=== PATIENT | female | born 1960 | race Two or more races ===

== ENCOUNTER → 2017-05-27 | Outpatient (CLI) | payer OTHER ==
[2014-06-01 18:30] VITALS: BP 136/65
== END | disposition home or self-care (01) ==
LOC: SURG 14:32
PROVIDERS: ATTEND Anesthesiology Pain Medicine
DX: M54.16 Radiculopathy, lumbar region (principal); M47.816 Spondylosis without myelopathy or radiculopathy, lumbar region; M51.37 Other intervertebral disc degeneration, lumbosacral region; F41.9 Anxiety disorder, unspecified; E11.9 Type 2 diabetes mellitus without complications; G89.4 Chronic pain syndrome
CPT/HCPCS: 99214

== ENCOUNTER → 2017-07-14 | Outpatient (CLI) | payer OTHER ==
[~2017-07-14] MED LIST: AMIT25TA PO; BUPIVACAINE MPF 0.25% 10 ML VIAL. ONE; CRESTOR40 MG PO; DEXAMETHASONE SOD PHOS 4 MG/ML VIAL ONE; DIAZ5TAB4 PO; ESOM40CA PO; GLIM4TAB2 PO; HYDR-2766 PO; HYDR2TAB31 PO; INSU100C SQ; IOHEXOL 300 MG/ML 50 ML VIAL. ONE; LEVO25TA4 PO; LIDOCAINE 1% PF 30 ML VIAL. ONE; LIRA0.6P2 SQ; MIDAZOLAM HCL PF 2 MG/2 ML VIAL. ONE; OMEG1CAP6 PO; PREG150C PO; SITA1TAB11 PO; TIZA4TAB PO
[2017-07-14] MEDS: IV RINGERS SOLUTION,LACTATED 1,000 ML IV SCH (11:57)
[2017-07-14 13:11] VITALS: BP 87/48
== END | disposition home or self-care (01) ==
LOC: SURG 10:24
PROVIDERS: ATTEND Anesthesiology Pain Medicine
DX: M54.16 Radiculopathy, lumbar region (principal); K21.9 Gastro-esophageal reflux disease without esophagitis; E11.9 Type 2 diabetes mellitus without complications; Z87.39 Personal history of other diseases of the musculoskeletal system and connective tissue; Z90.710 Acquired absence of both cervix and uterus; Z98.890 Other specified postprocedural states; Z88.6 Allergy status to analgesic agent
CPT/HCPCS: 64483; 64484; 82947; J1100; J2001; J2250; J3010; J3490; J7120; Q9967; 99152

== ENCOUNTER → 2017-08-18 | Outpatient (CLI) | payer OTHER ==
[2017-07-14 13:11] VITALS: BP 87/48
[~2017-08-18] MED LIST changes: -MIDAZOLAM HCL PF 2 MG/2 ML VIAL. ONE
== END ==
LOC: SURG 14:09
PROVIDERS: ATTEND Anesthesiology Pain Medicine
DX: M54.5 Low back pain (principal); K21.9 Gastro-esophageal reflux disease without esophagitis; E11.9 Type 2 diabetes mellitus without complications; Z88.6 Allergy status to analgesic agent; Z90.710 Acquired absence of both cervix and uterus; Z98.890 Other specified postprocedural states; Z87.891 Personal history of nicotine dependence; Z72.89 Other problems related to lifestyle
CPT/HCPCS: 64483; 64484; J1100; J2001; J3490; Q9967

== ENCOUNTER → 2017-09-02 | Outpatient (CLI) | payer OTHER ==
[2017-07-14 13:11] VITALS: BP 87/48
[~2017-09-02] MED LIST changes: -BUPIVACAINE MPF 0.25% 10 ML VIAL. ONE; -DEXAMETHASONE SOD PHOS 4 MG/ML VIAL ONE; -IOHEXOL 300 MG/ML 50 ML VIAL. ONE; -LIDOCAINE 1% PF 30 ML VIAL. ONE
== END | disposition home or self-care (01) ==
LOC: SURG 12:42
PROVIDERS: ATTEND Anesthesiology Pain Medicine
DX: M47.816 Spondylosis without myelopathy or radiculopathy, lumbar region (principal); K21.9 Gastro-esophageal reflux disease without esophagitis; Z88.6 Allergy status to analgesic agent; Z98.890 Other specified postprocedural states; Z87.39 Personal history of other diseases of the musculoskeletal system and connective tissue; Z87.891 Personal history of nicotine dependence
CPT/HCPCS: 99214

== ENCOUNTER → 2017-11-11 | Outpatient (CLI) | payer OTHER ==
[2017-07-14 13:11] VITALS: BP 87/48
== END | disposition home or self-care (01) ==
LOC: SURG 10:48
PROVIDERS: ATTEND Anesthesiology Pain Medicine
DX: M54.5 Low back pain (principal); M79.605 Pain in left leg; E78.5 Hyperlipidemia, unspecified; K21.9 Gastro-esophageal reflux disease without esophagitis; E11.9 Type 2 diabetes mellitus without complications; G89.29 Other chronic pain; Z79.4 Long term (current) use of insulin; Z87.891 Personal history of nicotine dependence; Z87.39 Personal history of other diseases of the musculoskeletal system and connective tissue; Z88.6 Allergy status to analgesic agent
CPT/HCPCS: 99214

== ENCOUNTER → 2018-01-12 | Outpatient (CLI) | payer OTHER ==
[2017-07-14 13:11] VITALS: BP 87/48
== END | disposition home or self-care (01) ==
LOC: SURG 09:15
PROVIDERS: ATTEND Anesthesiology Pain Medicine
DX: M54.16 Radiculopathy, lumbar region (principal); M47.816 Spondylosis without myelopathy or radiculopathy, lumbar region; G89.4 Chronic pain syndrome; F11.90 Opioid use, unspecified, uncomplicated; K21.9 Gastro-esophageal reflux disease without esophagitis; E78.5 Hyperlipidemia, unspecified; E11.9 Type 2 diabetes mellitus without complications; E03.9 Hypothyroidism, unspecified; Z79.899 Other long term (current) drug therapy
CPT/HCPCS: 99214

== ENCOUNTER → 2018-06-09 | Outpatient (CLI) | payer OTHER ==
[2017-07-14 13:11] VITALS: BP 87/48
[~2018-06-09] MED LIST changes: -HYDR-2766 PO; +HYDR-2769 PO
== END | disposition home or self-care (01) ==
LOC: SURG 11:14
PROVIDERS: ATTEND Anesthesiology Pain Medicine
DX: M47.26 Other spondylosis with radiculopathy, lumbar region (principal); M19.90 Unspecified osteoarthritis, unspecified site; G89.4 Chronic pain syndrome; F11.90 Opioid use, unspecified, uncomplicated; E78.5 Hyperlipidemia, unspecified; K21.9 Gastro-esophageal reflux disease without esophagitis; E11.9 Type 2 diabetes mellitus without complications; E03.9 Hypothyroidism, unspecified; Z79.899 Other long term (current) drug therapy; Z87.891 Personal history of nicotine dependence
CPT/HCPCS: 99214

== ENCOUNTER → 2018-09-08 | Outpatient (CLI) | payer OTHER ==
[2017-07-14 13:11] VITALS: BP 87/48
== END | disposition home or self-care (01) ==
LOC: SURG 12:11
PROVIDERS: ATTEND Anesthesiology Pain Medicine
DX: M54.5 Low back pain (principal); M19.90 Unspecified osteoarthritis, unspecified site; M96.1 Postlaminectomy syndrome, not elsewhere classified; E78.5 Hyperlipidemia, unspecified; K21.9 Gastro-esophageal reflux disease without esophagitis; E03.9 Hypothyroidism, unspecified; E11.42 Type 2 diabetes mellitus with diabetic polyneuropathy; G89.4 Chronic pain syndrome; Z79.891 Long term (current) use of opiate analgesic; Z79.899 Other long term (current) drug therapy; Z87.891 Personal history of nicotine dependence
CPT/HCPCS: 99214

== ENCOUNTER → 2019-01-26 | Outpatient (CLI) | payer OTHER ==
[~2019-01-26] MED LIST changes: -GLIM4TAB2 PO; +GLIM4TAB4 PO; +INSU100V31 SQ; -TIZA4TAB PO; +TIZA4TAB2 PO
[2019-01-26 13:41] VITALS: BP 139/71
== END | disposition home or self-care (01) ==
LOC: SURG 13:10
PROVIDERS: ATTEND Anesthesiology Pain Medicine
DX: M54.16 Radiculopathy, lumbar region (principal); G89.4 Chronic pain syndrome; K21.9 Gastro-esophageal reflux disease without esophagitis; E11.9 Type 2 diabetes mellitus without complications; E03.9 Hypothyroidism, unspecified; Z87.891 Personal history of nicotine dependence; Z79.899 Other long term (current) drug therapy
CPT/HCPCS: 99214

== ENCOUNTER → 2019-03-22 | Outpatient (CLI) | payer MEDICARE, OTHER ==
[~2019-03-22] MED LIST changes: -GLIM4TAB4 PO; +GLIM4TAB8 PO
[2019-03-22 09:41] VITALS: BP 121/60
== END | disposition home or self-care (01) ==
LOC: SURG 09:20
PROVIDERS: ATTEND Anesthesiology Pain Medicine
DX: M54.16 Radiculopathy, lumbar region (principal); M54.5 Low back pain; G89.4 Chronic pain syndrome; Z79.891 Long term (current) use of opiate analgesic; Z79.899 Other long term (current) drug therapy
CPT/HCPCS: 99214

== ENCOUNTER → 2019-04-19 | Outpatient (CLI) | payer MEDICARE, OTHER ==
[2019-04-19 14:38] VITALS: BP 102/70
== END | disposition home or self-care (01) ==
LOC: SURG 14:31
PROVIDERS: ATTEND Anesthesiology Pain Medicine
DX: M54.16 Radiculopathy, lumbar region (principal); G89.4 Chronic pain syndrome; E78.5 Hyperlipidemia, unspecified; K21.9 Gastro-esophageal reflux disease without esophagitis; E03.9 Hypothyroidism, unspecified; Z79.891 Long term (current) use of opiate analgesic; Z79.899 Other long term (current) drug therapy
CPT/HCPCS: 99214; G0463

== ENCOUNTER 2020-02-27 18:45 | Emergency (ER) | payer MEDICARE, OTHER ==
[~2020-02-27] VITALS: Ht 162.6 cm; Wt 71.0 kg
[2020-02-27 18:45] VITALS: BP 100/62
--- NOTE | 2020-02-27 19:03 | PHYS DOC ---
Past History Past Medical History: Anxiety, Arthritis, Diabetes, High Cholesterol, Hypertension, Hypothyroid Past Surgical History: Hysterectomy, Oophorectomy Smoking: Cigarettes Alcohol Use: None Drug Use: None General Adult EDM: Chief Complaint: BACK PAIN OR INJURY HPI: HPI: "... I am a mess.. I just got surgery on this Rt. foot.. Dr. Mills... At [facility]... They straightened toe put a wire in it and do some other surgery on my foot this was on February 11... But now getting back pain I do not know if it is from walking around with this walking cast or my chronic back pain from the multiple back surgeries have had... They did give her some pain meds but they are not helping very well ... I do have diabetes and decreased sensation in my feet particularly here on the right but that is kind of chr onic..." I am worried maybe I have a kidney stone or may be a UTI or things checked out Patient is a 59 year old female who presents with above hx and complaints lumbar sacral muscle spasm on right. Patient has history of diabetes, hypertension, chronic back pain from prior back injuries and surgery fixations, recent right foot surgery, and history of diabetes. Patient does have history of some peripheral neuropathy which has been chronic. Patient localizes pain in the lumbar sacral area has obvious spasm in this area. No midline tenderness. No recent fever or chills. No respiratory history immunosuppression. No recent travel or specific ill contacts. No history of Covid risk factors. Patient normally follows with for care. Patient does continue to smoke. Patient states her glucose levels today have been well controlled. No history of IV drug use that is listed. Patient denies any fever chills. Patient denies any problems with defecation or urination. No saddle sensation loss. Review of Systems: Review of Systems: Constitutional: Denies fever or chills Eyes: Denies change in visual acuity HENT: Denies nasal congestion or sore throat Respiratory: Denies cough or shortness of breath Cardiovascular: Denies chest pain or edema GI: Denies abdominal pain, nausea, vomiting, bloody stools or diarrhea : Denies dysuria Musculoskeletal: Complains of lower back pain on the right, no true CVA tenderness Integument: Denies rash Neurologic: Denies headache, focal weakness or sensory changes Endocrine: Denies polyuria or polydipsia Lymphatic: Denies swollen glands Psychiatric: Denies depression or anxiety Family History: Family History: Noncontributory to presentation Current Medications: Current Meds: See nursing for home meds Allergies: Allergies: Allergies Coded Allergies Type Severity Reaction Last Updated Verified morphine Allergy Unknown 03/22/19 Yes Physical Exam: PE: Constitutional: Moderate acute distress, non-toxic appearance. [] HENT: Normocephalic, atraumatic, bilateral external ears normal, oropharynx moist, no oral exudates, nose normal. [] Eyes: PERRLA, EOMI, conjunctiva normal, no discharge. [] Neck: Normal range of motion, no tenderness, supple, no stridor. [] Cardiovascular:Heart rate regular rhythm, no murmur [] Lungs & Thorax: Bilateral breath sounds equal apex with scattered wheezes auscultation [] Abdomen: Bowel sounds normal, soft, no tenderness, no masses, no pulsatile masses. [] Skin: Warm, dry, no erythema, no rash. [] Back: Right lower lumbar muscle spasm and tenderness, no CVA tenderness. [] Old surgery scars. No midline tenderness. Extremities: No tenderness, no cyanosis, no clubbing, ROM intact, no edema. [] Right foot in a walking cast Neurologic: Alert and oriented X 3, moves all extremities on request, history of decreased plantar sensation chronic, no focal deficits noted. [] Psychologic: Affect anxious, judgement normal, mood normal. [] EKG: EKG: [] Radiology/Procedures: Radiology/Procedures: [] Heart Score: Risk Factors: Risk Factors: DM, Current or recent (<one month) smoker, HTN, HLP, family histo ry of CAD, obesity. Risk Scores: Score 0 - 3: 2.5% MACE over next 6 weeks - Discharge Home Score 4 - 6: 20.3% MACE over next 6 weeks - Admit for Clinical Observation Score 7 - 10: 72.7% MACE over next 6 weeks - Early Invasive Strategies Course & Med Decision Making: Course & Med Decision Making Pertinent Labs and Imaging studies reviewed. (See chart for details) No marked hematuria or signs of UTI. Discussed patient options of further evaluation. Patient states she will continue her pain meds at home and follow- up with Dr. Llamas. Declines further work-up or x-rays at this time. For marked pain patient may take Vicoprofen up to 4 times a day. May also take a Flexeril 5 mg up to 3 times a day for muscle spasms. Keep follow-up with Dr. Chapa keep follow-up with Dr. Gene moran if any concerns. Advised patient appears to be a multifactorial cause of her right lower back pain spasms. Suspect chronic back pain with recent change in gait is exacerbated her lower back pain on the right. Does not appear to have a kidney stone or UTI. Impression: 1. Exacerbation of chronic lower back pain 2. Muscle spasm 3. Diabetes 4. Recent corrective foot surgery on right and walking cast-February 12, 2020 5. History of peripheral neuropathy. [] Dragon Disclaimer: Dragon Disclaimer: This electronic medical record was generated, in whole or in part, using a voice recognition dictation system. Departure Departure: Referrals: KALEIGH LLAMAS MD (PCP) Scripts Hydrocodone/Ibuprofen (HYDROCODONE-IBUPROFEN 7.5-200 ) 1 Each Tablet 1 TAB PO PRN Q6HRS PRN for PAIN, #30 TAB 0 Refills Prov: ALEKSEY MENENDEZ MD 02/27/20 Discharge Summary Visit Information Final Diagnosis Problems Medical Problems: (1) Back pain Status: Acute Brief Hospital Course Allergies Allergies Coded Allergies Type Severity Reaction Last Updated Verified morphine Allergy Unknown 03/22/19 Yes Vital Signs Vital Signs Date Time Temp Pulse Resp B/P (MAP) Pulse Ox O2 Delivery O2 Flow Rate FiO2 02/27/20 18:45 97.7 78 18 100/62 (75) 97 Room Air Lab Results Laboratory Tests Test 02/27/20 18:50 Urine Collection Type Unknown Urine Color Yellow Urine Clarity Clear Urine pH 5.0 Urine Specific [place] 1.020 Urine Protein Neg (NEG-TRACE) Urine Glucose (UA) >=1000 mg/dL (NEG) Urine Ketones (Stick) Neg mg/dL (NEG) Urine Blood Neg (NEG) Urine Nitrite Neg (NEG) Urine Bilirubin Neg (NEG) Urine Urobilinogen Dipstick 0.2 mg/dL (0.2 mg/dL) Urine Leukocyte Esterase Neg (NEG) Urine RBC Rare /HPF (0-2) Urine WBC 1-4 /HPF (0-4) Urine Squamous Epithelial Cells Few /LPF Urine Bacteria 0 /HPF (0-FEW) Urine Yeast Present /HPF Brief Hospital Course Ms. Shah is a 59 old [sex] who presented with [ ] Discharge Information Dischare Medications Current Medications Ketorolac Tromethamine (Toradol Im) 60 mg 1X ONCE IM Last administered on 02/27/20at 19:57; Start 02/27/20 at 19:45; Stop 02/27/20 at 19:54; Status DC Active Scripts Active Hydrocodone-Ibuprofen 7.5-200 (Hydrocodone/Ibuprofen) 1 Each Tablet 1 Tab PO PRN Q6HRS PRN Reported Novolog (Insulin Aspart) 100 Unit/1 Ml Vial 1 Unit SQ TID Glimepiride 4 Mg Tablet 1 Tab PO BID Dilaudid (Hydromorphone Hcl) 2 Mg Tablet 1 Tab PO QID Tizanidine Hcl (Tizanidine HCl) 4 Mg Tablet 0.5-1 Tab PO PRN Q8HRS PRN Humalog (Insulin Lispro) 100 Unit/1 Ml Cartridge 18 Unit SQ TIDAC Janumet 50-1,000 Mg Tablet (Sitagliptin Phos/Metformin Hcl) 1 Each Tablet 1 Tab PO BID Crestor (Rosuvastatin Calcium) 40 Mg Tablet 40 Mg PO HS Lyrica (Pregabalin) 150 Mg Capsule 1 Cap PO Q6-8HRS PRN Nexium Capsule (Esomeprazole Magnesium) 40 Mg Capsule. 1 Cap PO DAILY Levothyroxine Sodium 25 Mcg Tablet Unknown Dose PO DAILY Kenzie Disclaimer This chart was dictated in whole or in part using Voice Recognition software in a busy, high-work load, and often noisy Emergency Department environment. It may contain unintended and wholly unrecognized errors or omissions. Kenzie Disclaimer This chart was dictated in whole or in part using Voice Recognition software in a busy, high-work load, and often noisy Emergency Department environment. It may contain unintended and wholly unrecognized errors or omissions. ALEKSEY MENENDEZ MD Feb 27, 2020 19:03
[2020-02-27] MEDS ORDERED: KETOROLAC 60 MG/2 ML VIAL. IM ONE (19:45)
[2020-02-27 20:36] LABS: BILIRUBIN,URINE NEG (NEG); CLARITY,URINE CLEAR; COLOR,URINE YELLOW; GLUCOSE,URINE >=1000 mg/dL (NEG)
[2020-02-27 20:37] LABS: BACTERIA,URINE 0 /HPF (0-FEW); NITRITE,URINE NEG (NEG); RBC,URINE RARE /HPF (0-2); SQUAMOUS EPITHELIAL CELL,UR FEW /LPF; UROBILINOGEN,URINE 0.2 mg/dL (0.2 mg/dL); YEAST,URINE PRESENT /HPF
[2020-02-27] MEDS ORDERED: HYDR-1179 PO (20:46)
== END 2020-02-27 21:00 | disposition home or self-care (01) ==
LOC: ER 18:45
DX: G89.29 Other chronic pain (principal); M54.5 Low back pain; M62.830 Muscle spasm of back; E11.42 Type 2 diabetes mellitus with diabetic polyneuropathy; I10 Essential (primary) hypertension; F41.9 Anxiety disorder, unspecified; M19.90 Unspecified osteoarthritis, unspecified site; E78.00 Pure hypercholesterolemia, unspecified; E03.9 Hypothyroidism, unspecified; F17.210 Nicotine dependence, cigarettes, uncomplicated; Z90.710 Acquired absence of both cervix and uterus; Z90.722 Acquired absence of ovaries, bilateral; Z88.5 Allergy status to narcotic agent
CPT/HCPCS: 81001; 96372; 99283; J1885

== ENCOUNTER 2020-03-19 18:58 | Emergency (ER) | payer MEDICARE, OTHER ==
[~2020-03-19] VITALS: Ht 162.6 cm; Wt 71.0 kg
[~2020-03-19 18:58] MED LIST changes: +HYDR-1179 PO
[2020-03-19] MEDS ORDERED: IV NORMAL SALINE 1,000ML 1,000 ML IV ONE (19:45)
[2020-03-19] MEDS ORDERED: ONDANSETRON PF 4 MG/2 ML VIAL. IVP ONE (19:45)
--- NOTE | 2020-03-19 19:54 | PHYS DOC ---
Past History Past Medical History: Anxiety, Arthritis, Diabetes, High Cholesterol, Hypertension, Hypothyroid (THUAN FERRELL APRN) Past Surgical History: Hysterectomy, Oophorectomy (THUAN FERRELL APRN) Smoking: Cigarettes Alcohol Use: None Drug Use: None (THUAN FERRELL APRN) General Adult EDM: Chief Complaint: FLANK PAIN HPI: HPI: Patient is a 59-year-old female who presents with right sided lower abdominal pain and flank pain. "I feel like the pain is moving from my side to the middle of my belly". Patient is also reporting nausea and 5 loose stool stools today. Patient denies vomiting, fever recent illness. Patient has history of hypertension, diabetes, high cholesterol, anxiety. She states that she takes a stool softener every day. Denies taking anything for the pain prior to arrival. Patient is very tearful, "please help me figure out what is going, this pain is constant". Patient had positive Rovings Sign on assessment. (THUAN FERRELL APRN) Review of Systems: Review of Systems: Constitutional: Denies fever or chills Eyes: Denies change in visual acuity HENT: Denies nasal congestion or sore throat Respiratory: Denies cough or shortness of breath Cardiovascular: Denies chest pain or edema GI: Reports right lower quadrant abdominal pain and flank pain, reports nausea and loose stools.Denies vomiting, bloody stools : Denies dysuria Musculoskeletal: Reports right flank pain, denies joint pain Integument: Denies rash Neurologic: Denies headache, focal weakness or sensory changes Endocrine: Denies polyuria or polydipsia Lymphatic: Denies swollen glands Psychiatric: Denies depression or anxiety (THUAN FERRELL APRN) Current Medications: Current Meds: Current Medications Medications (Trade) Dose Ordered Sig/Linette Start Time Stop Time Status Last Admin Dose Admin Fentanyl Citrate (Fentanyl 2ml Vial) 50 mcg 1X ONCE 03/19/20 19:45 03/19/20 19:46 Ondansetron HCl (Zofran) 4 mg 1X ONCE 03/19/20 19:45 03/19/20 19:46 Sodium Chloride 1,000 ml @ 1,000 mls/hr 1X ONCE 03/19/20 19:45 03/19/20 20:44 (THUAN FERRELL APRN) Allergies: Allergies: Allergies Coded Allergies Type Severity Reaction Last Updated Verified morphine Allergy Unknown 03/22/19 Yes (THUAN FERRELL APRN) Physical Exam: PE: Constitutional: Well developed, well nourished, no acute distress, non-toxic appearance. [] HENT: Normocephalic, atraumatic, bilateral external ears normal, oropharynx moist, no oral exudates, nose normal. [] Eyes: PERRLA, EOMI, conjunctiva normal, no discharge. [] Neck: Normal range of motion, no tenderness, supple, no stridor. [] Cardiovascular:Heart rate regular rhythm, no murmur [] Lungs & Thorax: Bilateral breath sounds clear to auscultation [] Abdomen: Bowel sounds normal, soft, tenderness throughout, Skin: Warm, dry, no erythema, no rash. [] Back: No tenderness, right CVA tenderness. [] Extremities: No tenderness, no cyanosis, no clubbing, ROM intact, no edema. [] Neurologic: Alert and oriented X 3, normal motor function, normal sensory function, no focal deficits noted. [] Psychologic: Affect normal, judgement normal, mood normal. [] (THUAN FERRELL APRN) Current Patient Data: Vital Signs: Vital Signs Date Time Temp Pulse Resp B/P (MAP) Pulse Ox O2 Delivery O2 Flow Rate FiO2 03/19/20 19:10 98.0 94 16 119/82 (94) 99 Room Air (THUAN FERRELL APRN) EKG: EKG: [] (THUAN FERRELL APRN) Radiology/Procedures: Radiology/Procedures: []EXAMINATION: CT ABDOMEN+PELVIS WO (CT ABDOMEN/PELVIS WITHOUT IV CONTRAST) CLINICAL HISTORY: Right lower quadrant/flank pain TECHNIQUE: Non-IV contrast imaging of the abdomen and pelvis was performed using standard technique, scanning from just above the dome of the diaphragm to the symphysis pubis. Unenhanced imaging is limited for the evaluation of some intra-abdominal and pelvic pathology. CT Dose Reduction Employed: One or more of the following individualized dose reduction techniques were utilized for this examination: 1. Automated exposure control 2. Adjustment of the mA and/or kV according to patient size 3. Use of iterative reconstruction technique. COMPARISON: None FINDINGS: Partially visualized coronary atherosclerotic calcification and subsegmental atelectasis and/or scarring in the bilateral lower lobes. Tiny old calcified granulomas in the liver. Gallbladder, pancreas, spleen, and adrenal glands unremarkable. Kidneys unremarkable. No urolithiasis or evidence of obstructive uropathy. Minimally filled urinary bladder suboptimally evaluated. Hysterectomy. No dilated bowel. Normal appendix. Arterial atherosclerotic calcification without aneurysm. No lymphadenopathy. L4-S1 anterior fusion and L4-5 and L5-S1 discectomies. Multilevel thoracolumbar degenerative changes. Degenerative changes bilateral hips. IMPRESSION: No evidence of acute abdominopelvic abnormality. Electronically signed by: Abdias Melendez DO (03/19/2020 8:10 PM) [facility] DI[facility]ATED AND SIGNED BY: ABDIAS MELENDEZ DO DATE: 03/19/202000 CC: THUAN FERRELL APRN; KALEIGH LLAMAS MD ~MTH0 0 (THUAN FERRELL APRN) Heart Score: Risk Factors: Risk Factors: DM, Current or recent (<one month) smoker, HTN, HLP, family history of CAD, obesity. Risk Scores: Score 0 - 3: 2.5% MACE over next 6 weeks - Discharge Home Score 4 - 6: 20.3% MACE over next 6 weeks - Admit for Clinical Observation Score 7 - 10: 72.7% MACE over next 6 weeks - Early Invasive Strategies (THUAN FERRELL APRN) Course & Med Decision Making: Course & Med Decision Making Pertinent Labs and Imaging studies reviewed. (See chart for details) [] 51-year-old female presents with right-sided lower abdominal pain and flank pain that is migrating towards the middle of her belly. CT of abdomen ordered to rule out appendicitis, kidney stones. Positive Rovings Sign on examination. CT of abdomen was negative for acute abnormalities. Labs within normal values within normal range. Pain improved with Fentanyl. Patient to follow up with PCP for further evaluation. Continue to take ibuprofen and stool softner at home for pain and constipation. Patient hemodynamically stable on DC. (THUAN FERRELL APRN) Dragon Disclaimer: Dragon Disclaimer: This electronic medical record was generated, in whole or in part, using a voice recognition dictation system. (THUAN FERRELL APRN) Departure Departure: Impression: Primary Impression: Abdominal pain Qualified Codes: R10.31 - Right lower quadrant pain Disposition: DC HOME SELF CARE/HOMELESS Condition: IMPROVED Referrals: KALEIGH LLAMAS MD (PCP) Patient Instructions: Abdominal Pain (Nonspecific) Additional Instructions: You were seen today for abdominal pain and flank pain. Your CT of your abdomen did not show any abnormalities. All of your lab work was unremarkable along with your urines. Please continue to take ibuprofen and stool softeners at home for discomfort and pain. Please follow-up with your primary care physician for further evaluation. Return to the emergency room with worsening symptoms or concerns. Scripts Ondansetron Hcl (ZOFRAN) 4 Mg Tablet 4 MG PO TID PRN PRN for NAUSEA, #9 TAB Prov: THUAN FERRELL APRN 03/19/20 Attending Signature Attending Signature I have participated in the care of this patient and I have reviewed and agree with all pertinent clinical information above including history, exam, and recommendations. (ALEKSEY MENENDEZ MD) THUAN FERRELL APRN Mar 19, 2020 19:54 ALEKSEY MENENDEZ MD Mar 22, 2020 16:15
[2020-03-19 20:04] LABS: BASO % 1 % (0-3); EOS % 1 % (0-3); HEMATOCRIT 44.8 % (36.0-47.0); HEMOGLOBIN 14.9 g/dL (12.0-15.5); LYMPH # 1.8 x10^3/uL (1.0-4.8); LYMPH % 20 % (24-48); MEAN CORPUSCULAR HEMOGLOBIN 29 pg (25-35); MEAN CORPUSCULAR HGB CONC 33 g/dL (31-37); MEAN CORPUSCULAR VOLUME 86 fL (79-100); MONO # 0.6 x10^3/uL (0.0-1.1); MONO % 7 % (0-9); NEUT # 6.4 x10^3uL (1.8-7.7); NEUT % 72 % (31-73); PLATELET COUNT 196 x10^3/uL (140-400); RED CELL DISTRIBUTION WIDTH 13.1 % (11.5-14.5); WHITE BLOOD COUNT 8.9 x10^3/uL (4.0-11.0)
[2020-03-19 20:11] LABS: CALCIUM 9.4 mg/dL (8.5-10.1); CREATININE 0.6 mg/dL (0.6-1.0); GFR 102.7; POTASSIUM 3.8 mmol/L (3.5-5.1)
--- NOTE | 2020-03-19 20:13 | RAD ---
EXAMINATION: CT ABDOMEN+PELVIS WO (CT ABDOMEN/PELVIS WITHOUT IV CONTRAST) CLINICAL HISTORY: Right lower quadrant/flank pain TECHNIQUE: Non-IV contrast imaging of the abdomen and pelvis was performed using standard technique, scanning from just above the dome of the diaphragm to the symphysis pubis. Unenhanced imaging is th[place] ited for the evaluation of some intra-abdominal and pelvic pathology. CT Dose Reduction Employed: One or more of the following individualized dose reduction techniques wer e utilized for this examination: 1. Automated exposure control 2. Adjustment of the mA and/or kV ac cording to patient size 3. Use of iterative reconstruction technique. COMPARISON: None FINDINGS: Partially visualized coronary atherosclerotic calcification and subsegmental atelectasis and/or scarr ing in the bilateral lower lobes. Tiny old calcified granulomas in the liver. Gallbladder, pancreas, spleen, and adrenal glands unremar kable. Kidneys unremarkable. No urolithiasis or evidence of obstructive uropathy. Minimally filled urinary bladder suboptimally evaluated. Hysterectomy. No dilated bowel. Normal appendix. Arterial atherosclerotic calcification without aneurysm. No lymphadenopathy. L4-S1 anterior fusion and L4-5 and L5-S1 discectomies. Multilevel thoracolumbar degenerative changes. Degenerative changes bilateral hips. IMPRESSION: No evidence of acute abdominopelvic abnormality. Electronically signed by: Abdias Berger DO (03/19/2020 8:10 PM) [facility]
[2020-03-19 20:16] LABS: ALBUMIN 3.7 g/dL (3.4-5.0); ALBUMIN/GLOBULIN RATIO 0.9 (1.0-1.7); TOTAL BILIRUBIN 0.5 mg/dL (0.2-1.0); TOTAL PROTEIN 7.6 g/dL (6.4-8.2)
[2020-03-19 20:17] LABS: BILIRUBIN,URINE NEG (NEG); CLARITY,URINE CLEAR; COLOR,URINE YELLOW; GLUCOSE,URINE >=1000 mg/dL (NEG); NITRITE,URINE NEG (NEG); UROBILINOGEN,URINE 0.2 mg/dL (0.2 mg/dL)
[2020-03-19 20:18] LABS: BACTERIA,URINE 0 /HPF (0-FEW); RBC,URINE 0 /HPF (0-2); WBC,URINE 0 /HPF (0-4)
[2020-03-19] MEDS ORDERED: ONDA4TAB7 PO (21:33)
[2020-03-19] MEDS ORDERED: KETOROLAC 30 MG/ML VIAL. IVP ONE (21:45)
[2020-03-19 21:49] VITALS: BP 132/84
== END 2020-03-19 21:53 | disposition home or self-care (01) ==
LOC: ER 18:58
DX: R10.31 Right lower quadrant pain (principal); R19.7 Diarrhea, unspecified; M19.90 Unspecified osteoarthritis, unspecified site; F41.9 Anxiety disorder, unspecified; E11.9 Type 2 diabetes mellitus without complications; E78.00 Pure hypercholesterolemia, unspecified; I10 Essential (primary) hypertension; E03.9 Hypothyroidism, unspecified; F17.210 Nicotine dependence, cigarettes, uncomplicated; Z90.710 Acquired absence of both cervix and uterus; Z90.722 Acquired absence of ovaries, bilateral; Z88.5 Allergy status to narcotic agent
CPT/HCPCS: 36415; 74176; 80053; 81001; 85025; 96361; 96374; 96375; 96376; 99284; J1885; J2405; J3010; J7030; 99285-25

== ENCOUNTER → 2020-07-17 | Day surgery (SDC) | payer OTHER ==
[~2020-07-17] MED LIST changes: +ACETAMINOPHEN 500 MG TABLET PO PRN; +BALANCED SALT IRRIG SOLN NO.2 500 ML IO ONE; +BENZONATATE 100 MG CAPSULE. PO PRN; +BRIMONIDINE 0.2% OPHTH SOLUTION 5ML BOTTLE. OD ONE; +CEFUROXIME OPHTH 4 MG/0.4 ML SYRINGE. OD ONE; +CHONDROIT-SOD-HYALURONATE KIT. OD ONE; +IPRATRPIUM/ALBUTEROL 0.5/2.5MG 3 ML NEBU. NEB PRN; +IV RINGERS SOLUTION,LACTATED 1,000 ML IV SCH; +LIDO/EPI IN BSS OPHTH 2.7 ML SYRINGE. OD ONE; +LIDOCAINE 2% JELLY 6ML IN APPLICATOR. ONE; +MIDAZOLAM HCL PF 2 MG/2 ML VIAL. IV ONE; +MIDAZOLAM HCL PF 2 MG/2 ML VIAL. ONE; +ONDA4TAB7 PO; +ONDANSETRON PF 4 MG/2 ML VIAL. IV PRN; +PHENYLEPHRINE 10% OPHTH SOLUTION 5ML BOTTLE. OD PRN; +POVIDONE-IODINE 5% OPHTH SOLUTION 30ML BOTTLE. OD ONE; +POVIDONE-IODINE 5% OPHTH SOLUTION 30ML BOTTLE. OD PRN; +PROPARACAINE 0.5% OPHTH SOLUTION 15ML BOTTLE. OD ONE; +PROPARACAINE 0.5% OPHTH SOLUTION 15ML BOTTLE. OD PRN; +prednisoLONE ACETATE 1% OPHTH SUSPENSION 5ML BOTTLE. OD ONE
[2020-07-17] MEDS: TROPICAMIDE 1% OPHTH SOLUTION 15ML BOTTLE. OD SCH ×3 (12:03→12:15)
[2020-07-17] MEDS: TOBRAMYCIN 0.3% OPHTH SOLUTION 5ML BOTTLE. OD SCH ×2 (12:03→12:10)
[2020-07-17] MEDS: KETOROLAC TROMETHAMINE 0.5% OPHTH SOLUTION BOTTLE. OD SCH ×2 (12:03→12:10)
[2020-07-17] MEDS: PHENYLEPHRINE 2.5% OPHTH SOLUTION 2ML BOTTLE. OD SCH ×3 (12:04→12:15)
--- NOTE | 2020-07-17 13:32 | PDOC4 ---
SURGEON: Mere Carr MD Date of Procedure: 07/17/20 PREOP Diagnosis Visually significant cataract: Right Eye OD POSTOP Diagnosis Same PROCEDURE: Phaco w/ posterior chamber IOL: Right Eye OD ANESTHESIA Deep forniceal periocular 2% Lidocaine jelly Nohemi/retro bulbar block with 2% Lidocaine with 0.5% Marcaine DESCRIPTION OF PROCEDURE The risks, benefits, and alternatives were discussed with the patient who elected to proceed. Informed consent was obtained in writing and placed in the chart After anesthetizing the eye topically, the patient was taken to the operating room, and the operative eye was prepped and draped in the usual sterile fashion for ocular surgery. A wire lid speculum was placed. A 1-mm clear corneal paracentesis incision was created with the side-port blade at a position three o'clock hours clockwise from the temporal cornea. Then, 1% non-preserved Lidocaine with epinephrine was injected into the anterior chamber followed by viscoelastic. Cotton-tipped applicators were used to stabilize the globe, and a 2.4 mm keratome was used to create a self-sealing incision in clear cornea at the temporal limbus. The Utrata forceps were used to create a continuous curvilinear capsulorrhexis. Balanced saline solution was injected via cannula beneath the capsulorrhexis edge to hydrodissect the lens nucleus and cortex from the lens capsule. The phacoemulsification handpiece and a chopping instrument were then used to remove the lens nucleus. The remaining epinuclear material and cortex were removed with the irrigation/aspiration handpiece. Vi scoelastic was used to re-inflate the lens capsule, and the intraocular lens was injected directly into the capsular bag. The corneal wound edges were hydrated with balanced salt solution on a cannula and the irrigation/aspiration handpiece was used to extract the remaining viscoelastic. Cefuroxime 0.1mg/ml / Vigamox 0.5% was injected into the anterior chamber intracamerally. The wounds were inspected and found to be watertight at an appropriate intraocular pressure. Topical antibiotic drops were placed on the corneal surface. LRI: No If Yes, Number [] [place] [] Length [] degrees Depth [] microns Incision [place]: 180 Toric Lens [place] [] Patch/shield with Maxitrol/Tobradex/Erythromycin ointment: Yes No Co-managed patients/postop examination stable for co-management with referring doctor. EBL EBL: None SPECIMANS COLLECTED Specimens Collected: None MERE CARR MD July 17, 2020 13:32
[2020-07-17 13:43] VITALS: BP 99/58
== END | disposition home or self-care (01) ==
LOC: SURG 11:42
PROVIDERS: ATTEND Ophthalmology
DX: E11.36 Type 2 diabetes mellitus with diabetic cataract (principal); H25.11 Age-related nuclear cataract, right eye; E11.42 Type 2 diabetes mellitus with diabetic polyneuropathy; I10 Essential (primary) hypertension; E78.00 Pure hypercholesterolemia, unspecified; F41.9 Anxiety disorder, unspecified; F11.90 Opioid use, unspecified, uncomplicated; K21.9 Gastro-esophageal reflux disease without esophagitis; E03.9 Hypothyroidism, unspecified; F17.210 Nicotine dependence, cigarettes, uncomplicated; Z79.899 Other long term (current) drug therapy; Z79.4 Long term (current) use of insulin; Z88.5 Allergy status to narcotic agent; Z79.82 Long term (current) use of aspirin; Z90.722 Acquired absence of ovaries, bilateral
CPT/HCPCS: 66984; 82947; J2250; V2632

== ENCOUNTER → 2020-08-07 | Day surgery (SDC) | payer MEDICARE, OTHER ==
[~2020-08-07] MED LIST changes: -BRIMONIDINE 0.2% OPHTH SOLUTION 5ML BOTTLE. OD ONE; +BRIMONIDINE 0.2% OPHTH SOLUTION 5ML BOTTLE. OS ONE; -CEFUROXIME OPHTH 4 MG/0.4 ML SYRINGE. OD ONE; +CEFUROXIME OPHTH 4 MG/0.4 ML SYRINGE. OS ONE; -CHONDROIT-SOD-HYALURONATE KIT. OD ONE; +CHONDROIT-SOD-HYALURONATE KIT. OS ONE; +IBUPROFEN 200 MG TABLET PO PRN; -LIDO/EPI IN BSS OPHTH 2.7 ML SYRINGE. OD ONE; +LIDO/EPI IN BSS OPHTH 2.7 ML SYRINGE. OS ONE; -PHENYLEPHRINE 10% OPHTH SOLUTION 5ML BOTTLE. OD PRN; +PHENYLEPHRINE 10% OPHTH SOLUTION 5ML BOTTLE. OS PRN; -POVIDONE-IODINE 5% OPHTH SOLUTION 30ML BOTTLE. OD ONE; -POVIDONE-IODINE 5% OPHTH SOLUTION 30ML BOTTLE. OD PRN; +POVIDONE-IODINE 5% OPHTH SOLUTION 30ML BOTTLE. ONE; +POVIDONE-IODINE 5% OPHTH SOLUTION 30ML BOTTLE. OS ONE; +POVIDONE-IODINE 5% OPHTH SOLUTION 30ML BOTTLE. OS PRN; -PROPARACAINE 0.5% OPHTH SOLUTION 15ML BOTTLE. OD ONE; -PROPARACAINE 0.5% OPHTH SOLUTION 15ML BOTTLE. OD PRN; +PROPARACAINE 0.5% OPHTH SOLUTION 15ML BOTTLE. OS ONE; +PROPARACAINE 0.5% OPHTH SOLUTION 15ML BOTTLE. OS PRN; -prednisoLONE ACETATE 1% OPHTH SUSPENSION 5ML BOTTLE. OD ONE; +prednisoLONE ACETATE 1% OPHTH SUSPENSION 5ML BOTTLE. OS ONE
[2020-08-07] MEDS: TROPICAMIDE 1% OPHTH SOLUTION 15ML BOTTLE. OS SCH ×3 (10:22→10:36)
[2020-08-07] MEDS: KETOROLAC TROMETHAMINE 0.5% OPHTH SOLUTION BOTTLE. OS SCH ×2 (10:22→10:29)
[2020-08-07] MEDS: PHENYLEPHRINE 2.5% OPHTH SOLUTION 2ML BOTTLE. OS SCH ×3 (10:22→10:36)
[2020-08-07] MEDS: TOBRAMYCIN 0.3% OPHTH SOLUTION 5ML BOTTLE. OS SCH ×2 (10:24→10:29)
--- NOTE | 2020-08-07 11:10 | PDOC4 ---
SURGEON: Mere Carr MD Date of Procedure: 08/07/20 PREOP Diagnosis Visually significant cataract: Left Eye OS POSTOP Diagnosis Same PROCEDURE: Phaco w/ posterior chamber IOL: Left Eye OS ANESTHESIA Deep forniceal periocular 2% Lidocaine jelly Nohemi/retro bulbar block with 2% Lidocaine with 0.5% Marcaine DESCRIPTION OF PROCEDURE The risks, benefits, and alternatives were discussed with the patient who elected to proceed. Informed consent was obtained in writing and placed in the chart After anesthetizing the eye topically, the patient was taken to the operating room, and the operative eye was prepped and draped in the usual sterile fashion for ocular surgery. A wire lid speculum was placed. A 1-mm clear corneal paracentesis incision was created with the side-port blade at a position three o'clock hours clockwise from the temporal cornea. Then, 1% non-preserved Lidocaine with epinephrine was injected into the anterior chamber followed by viscoelastic. Cotton-tipped applicators were used to stabilize the globe, and a 2.4 mm keratome was used to create a self-sealing incision in clear cornea at the temporal limbus. The Utrata forceps were used to create a continuous curvilinear capsulorrhexis. Balanced saline solution was injected via cannula beneath the capsulorrhexis edge to hydrodissect the lens nucleus and cortex from the lens capsule. The phacoemulsification handpiece and a chopping instrument were then used to remove the lens nucleus. The remaining epinuclear material and cortex were removed with the irrigation/aspiration handpiece. Vis coelastic was used to re-inflate the lens capsule, and the intraocular lens was injected directly into the capsular bag. The corneal wound edges were hydrated with balanced salt solution on a cannula and the irrigation/aspiration handpiece was used to extract the remaining viscoelastic. Cefuroxime 0.1mg/ml / Vigamox 0.5% was injected into the anterior chamber intracamerally. The wounds were inspected and found to be watertight at an appropriate intraocular pressure. Topical antibiotic drops were placed on the corneal surface. LRI: No If Yes, Number [] [place] [] Length [] degrees Depth [] microns Incision [place]: 180 Toric Lens [place] [] Patch/shield with Maxitrol/Tobradex/Erythromycin ointment: Yes No Co-managed patients/postop examination stable for co-management with referring doctor. EBL EBL: None SPECIMANS COLLECTED Specimens Collected: None MERE CARR MD August 07, 2020 11:10
[2020-08-07 11:24] VITALS: BP 113/61
== END | disposition home or self-care (01) ==
LOC: SURG 10:09
PROVIDERS: ATTEND Ophthalmology
DX: E11.36 Type 2 diabetes mellitus with diabetic cataract (principal); H25.12 Age-related nuclear cataract, left eye; I10 Essential (primary) hypertension; E78.00 Pure hypercholesterolemia, unspecified; Z88.5 Allergy status to narcotic agent; K21.9 Gastro-esophageal reflux disease without esophagitis; E11.42 Type 2 diabetes mellitus with diabetic polyneuropathy; F41.9 Anxiety disorder, unspecified; E03.9 Hypothyroidism, unspecified; Z79.899 Other long term (current) drug therapy; Z79.4 Long term (current) use of insulin; Z98.890 Other specified postprocedural states; Z87.891 Personal history of nicotine dependence
CPT/HCPCS: 66984; 82947; J2250; V2632

== ENCOUNTER 2020-11-04 19:12 | Emergency (ER) | payer MEDICARE, OTHER ==
[~2020-11-04] VITALS: Ht 162.6 cm; Wt 73.2 kg
[~2020-11-04 19:12] MED LIST changes: -ACETAMINOPHEN 500 MG TABLET PO PRN; -BALANCED SALT IRRIG SOLN NO.2 500 ML IO ONE; -BENZONATATE 100 MG CAPSULE. PO PRN; -BRIMONIDINE 0.2% OPHTH SOLUTION 5ML BOTTLE. OS ONE; -CEFUROXIME OPHTH 4 MG/0.4 ML SYRINGE. OS ONE; -CHONDROIT-SOD-HYALURONATE KIT. OS ONE; -IBUPROFEN 200 MG TABLET PO PRN; -IPRATRPIUM/ALBUTEROL 0.5/2.5MG 3 ML NEBU. NEB PRN; -IV RINGERS SOLUTION,LACTATED 1,000 ML IV SCH; -LIDO/EPI IN BSS OPHTH 2.7 ML SYRINGE. OS ONE; -LIDOCAINE 2% JELLY 6ML IN APPLICATOR. ONE; -MIDAZOLAM HCL PF 2 MG/2 ML VIAL. IV ONE; -MIDAZOLAM HCL PF 2 MG/2 ML VIAL. ONE; -ONDANSETRON PF 4 MG/2 ML VIAL. IV PRN; -PHENYLEPHRINE 10% OPHTH SOLUTION 5ML BOTTLE. OS PRN; -POVIDONE-IODINE 5% OPHTH SOLUTION 30ML BOTTLE. ONE; -POVIDONE-IODINE 5% OPHTH SOLUTION 30ML BOTTLE. OS ONE; -POVIDONE-IODINE 5% OPHTH SOLUTION 30ML BOTTLE. OS PRN; -PROPARACAINE 0.5% OPHTH SOLUTION 15ML BOTTLE. OS ONE; -PROPARACAINE 0.5% OPHTH SOLUTION 15ML BOTTLE. OS PRN; -prednisoLONE ACETATE 1% OPHTH SUSPENSION 5ML BOTTLE. OS ONE
--- NOTE | 2020-11-04 20:11 | PHYS DOC ---
Past History Past Medical History: Anxiety, Arthritis, Diabetes, High Cholesterol, Hypertension, Hypothyroid Past Surgical History: Hysterectomy, Oophorectomy Smoking: Cigarettes Alcohol Use: None Drug Use: None General Adult EDM: Chief Complaint: SORE THROAT HPI: HPI: Patient is a 60-year-old female who presents to the ER for multiple complaints including sore throat and right foot pain. Patient reports that she started having a sore throat, chest congestion, nonproductive cough yesterday. She is also reporting right foot pain and swelling. She states that 5 months ago she had Dr. Gupta who is a house worker general remove the piece of glass from her right foot and she noticed some swelling and pain to the bottom of her foot yesterday. Patient rates pain 10 out of 10. She has been taking ibuprofen with little relief in symptoms. Patient has a history of diabetes and neuropathy. Patient denies fever, shortness of breath, chest pain. She states that she had a positive Covid exposure. Patient sees a pain management doctor in [place], she states that she is not looking for any pain medication just wants to make sure that there is nothing still in her right foot. Review of Systems: Review of Systems: 14 body systems of the review of systems have been reviewed. See HPI for pertinent positive and negative responses, otherwise all other systems are negative, nonpertinent or noncontributory Allergies: Allergies: Allergies Coded Allergies Type Severity Reaction Last Updated Verified morphine Allergy Unknown anxiety 08/07/20 Yes Physical Exam: PE: Constitutional: Well developed, well nourished, no acute distress, non-toxic appearance. [] HENT: Normocephalic, atraumatic, bilateral external ears normal, oropharynx moist, no oral exudates, 2+ tonsillar enlargement without exudate, oropharyngeal erythema, postnasal drainage, nose normal. [] Eyes: PERRL, EOMI, conjunctiva normal, no discharge. [] Neck: Normal range of motion, no tenderness, supple, no stridor. [] Cardiovascular:Heart rate regular rhythm, no murmur [] Lungs & Thorax: Bilateral breath sounds clear to auscultation [] Abdomen: Bowel sounds normal, soft, no tenderness, no masses, no pulsatile masses. [] Skin: Warm, dry, no erythema, no rash. [] Back: Normal range of motion Extremities: No tenderness, no cyanosis, no clubbing, ROM intact, no edema. Right foot: He has swelling noted to the plantar patient's right foot proximal to the toes, strong pedis pulse, no visible foreign body, no wounds. Patient will bear weight and ambulate. Neurologic: Alert and oriented X 3, normal motor function, normal sensory function, no focal deficits noted. [] Psychologic: Affect normal, judgement normal, mood normal. [] Current Patient Data: Vital Signs: Rapid strep test negative. EKG: EKG: [] Radiology/Procedures: Radiology/Procedures: PROCEDURE: FOOT RIGHT 3V XR FOOT_RIGHT 3 VIEWS DATE: 11/04/2020 8:42 PM INDICATION: swelling, fb?, PLANTAR FOREFOOT SWELLING, H/O SURGERY COMPARISON: None. FINDINGS: There is no evidence of acute fracture or dislocation. Postsurgical changes of the fifth metatarsal ORIF. No other foreign bodies identified. The joint spaces are normal. IMPRESSION: No acute fracture. Fifth metatarsal ORIF. No other foreign body is seen. Electronically signed by: Luciana Rodriguez MD (11/04/2020 9:03 PM) [facility] DICTATED AND SIGNED BY: LUCIANA RODRIGUEZ MD DATE: 11/04/202099 CC: EMERGENCY,DEPARTMENT; ROMAN FAN APRN; ANDREINA CARRILLO PAC ~MTH0 0 [] Heart Score: C/O Chest Pain: No Risk Factors: Risk Factors: DM, Current or recent (<one month) smoker, HTN, HLP, family history of CAD, obesity. Risk Scores: Score 0 - 3: 2.5% MACE over next 6 weeks - Discharge Home Score 4 - 6: 20.3% MACE over next 6 weeks - Admit for Clinical Observation Score 7 - 10: 72.7% MACE over next 6 weeks - Early Invasive Strategies Course & Med Decision Making: Course & Med Decision Making Pertinent Labs and Imaging studies reviewed. (See chart for details) Patient is a 60-year-old female being seen in the ER for right foot pain and sore throat. Patient was tested for strep throat and it was negative. Patient had a Covid test performed she will be notified of those results when they become available in approximately 2 days. Patient advised to self isolate until she receives these results. An x-ray was performed of patient's right foot and it was negative for any acute findings. Patient advised to take Tylenol/ibuprofen for pain. Patient advised to use ice and elevation for swelling.. I discussed with patient all findings and diagnostic testing as well as the need to follow-up with PCP for further evaluation and treatment or return to the ER if any new or worsening symptoms. Strict return precautions were also discussed at length. Patient voiced understanding and agreement with the plan. Patient is hemodynamically stable at the time of disposition. Dragon Disclaimer: Dragseveriano Disclaimer: This electronic medical record was generated, in whole or in part, using a voice recognition dictation system. Departure Departure: Impression: Primary Impression: Pharyngitis Qualified Codes: J02.9 - Acute pharyngitis, unspecified Additional Impression: Foot pain Qualified Codes: M79.671 - Pain in right foot Disposition: HOME / SELF CARE / HOMELESS Condition: GOOD Referrals: ANDREINA CARRILLO (PCP) Patient Instructions: Sore Throat Additional Instructions: You were seen in the ER for sore throat, nonproductive cough right foot pain and swelling. Rapid strep test was done and was negative. You are also Covid tested in the ER. You will be notified of these results when they become available in approximately 2 days. Please self isolate until you receive these results. An x-ray was performed of your right foot and there was no foreign b nikolai or fracture. You can take Tylenol/ibuprofen for your pain. To help with the swelling use ice and elevation. Please follow-up with your primary care provider tomorrow regarding your ER visit. If you develop difficulty swallowing, inability to maintain secretions, shortness of breath, chest pain, fevers refractory to treatment, inability to bear weight or ambulate please retu rn to the ER. EMERGENCY DEPARTMENT GENERAL DISCHARGE INSTRUCTIONS Thank you for coming to [facility] (ED) today and trusting us with you care. We trust that you had a positivie experience in our Emergency Department. If you wish to speak to the department management, you may call the director at [phone]. YOUR FOLLOW UP INSTRUCTIONS ARE FOLLOWS: 1. Do you have a private Doctor? If you do not have a private doctor, please ask for a resource list of physicians or clinics that may be able to assist you with follow up care. 2. The Emergency Physician has interpreted your x-rays. The X-Ray specialist will also review them. If there is a change in the findings, you will be notified in 48 hours when at all possible. 3. A lab test or culture has been done, your results will be reviewed and you will be notified if you need a change in treatment. ADDITIONAL INSTRUCTIONS AND INFORMATION: 1. Your care today has been supervised by a physician who is specially trained in emergency care. Many problems require more than one evaluation for a complete diagnosis and treatment. We recommend that you schedule your follow up appointment as recommended to ensure complete treatment of you illness or injury. If you are unable to obtain follow up care and continue to have a problem, or if your condition worsens, we recommend that you return to the ED. 2. We are not able to safely determine your condition over the phone nor are we able to give sound medical advice over the phone. For these safety reasons, if you call for medical advice we will ask you to come to the ED for further evaluation. 3. If you have any questions regarding these discharge instructions please call the ED at [phone]. SAFETY INFORMATION: In the interest of safety, wellness, and injury prevention; we encourage you to wear your sealbelt, if you smoke; quite smoking, and we encourage family to use a protective helmet for bicycling and other sporting events that present an increased risk for head injury. IF YOUR SYMPTOMS WORSEN OR NEW SYMPTOMS DEVELOP, OR YOU HAVE CONCERNS ABOUT YOUR CONDITION; OR IF YOUR CONDITION WORSENS WHILE YOU ARE WAITING FOR YOUR FOLLOW UP APPOINTMENT; EITHER CONTACT YOUR PRIMARY CARE DOCTOR, THE PHYSICIAN WHOSE NAME AND NUMBER YOU WERE GIVEN, OR RETURN TO THE ED IMMEDIATELY. ROMAN FAN APRN Nov 04, 2020 20:11
--- NOTE | 2020-11-04 21:06 | RAD ---
XR FOOT_RIGHT 3 VIEWS DATE: 11/04/2020 8:42 PM INDICATION: swelling, fb?, PLANTAR FOREFOOT SWELLING, H/O SURGERY COMPARISON: None. FINDINGS: There is no evidence of acute fracture or dislocation. Postsurgical changes of the fifth metatarsal O RIF. No other foreign bodies identified. The joint spaces are normal. IMPRESSION: No acute fracture. Fifth metatarsal ORIF. No other foreign body is seen. Electronically signed by: Jamshid Tyler MD (11/04/2020 9:03 PM) [facility]
[2020-11-04 21:30] VITALS: BP 134/64
== END 2020-11-04 21:42 | disposition home or self-care (01) ==
LOC: ER 19:12
DX: J02.9 Acute pharyngitis, unspecified (principal); M79.671 Pain in right foot; R22.41 Localized swelling, mass and lump, right lower limb; F41.9 Anxiety disorder, unspecified; M19.90 Unspecified osteoarthritis, unspecified site; E11.9 Type 2 diabetes mellitus without complications; E78.00 Pure hypercholesterolemia, unspecified; I10 Essential (primary) hypertension; E03.9 Hypothyroidism, unspecified; F17.210 Nicotine dependence, cigarettes, uncomplicated; Z20.822 Contact with and (suspected) exposure to COVID-19; Z88.5 Allergy status to narcotic agent
CPT/HCPCS: 73630; 87070; 87880; 99284; C9803; U0003